=== PATIENT | male | born 1985 | race African-American/Black ===

== ENCOUNTER 2019-04-02 14:05 | Emergency (ER) | payer BC, OTHER ==
[2019-04-02 14:19] VITALS: BP 133/87; PULSE 86; TEMP 98; BMI 29.5
--- NOTE | 2019-04-02 14:19 | PDOC ---
Rapid Medical Evaluation Medical Evaluation: Allergies Allergy/AdvReac Type Severity Reaction Status Date / Time No Known Allergies Allergy Unverified 11/01/13 00:03 I have performed a brief in-person evaluation of this patient. The patient presents with a chief complaint of: No sig pmh, nonsmoker, non drug use, presents with nonradiating substernal CP from 2 days ago; denies sob, abd pain, vomiting; pain is not exertional Pertinent physical exam findings: In NAD, chest nontender I have ordered the following: Labs, ekg, cxr The patient will proceed to the ED for further evaluation. 04/02/19 14:17
--- NOTE | 2019-04-02 16:04 | PDOC ---
History of Present Illness - General Chief Complaint: Chest Pain Stated Complaint: CHEST PAIN Time Seen by Provider: 04/02/19 14:17 - History of Present Illness Initial Comments: 04/02/19 15:57 HPI: 33 y/o M with no pmh presenting with 10 days of chest pain that worsened yesterday. Pain is midsternal without radiation. Was initially intermittent but now its constant. It has no trigger and is nonexertional. Pain is sharp and 9/ 10. He has had no other trauma, recent exercise. He reports trying advil last night with some alleviation of symptoms. He also reports pressure occipital MUJICA and pressure behind his eyes. Also complains of chills, congestion. Denies emesis, SOB, palpitations, fever, syncope, abd pain, dysuria. He also reports odd burning sensation in his right hand palmar surface as well as right foot since chest pain started. It occurs intermittently. He denies any weakness or pain. PMHx: as noted above ROS: as noted SHx: Denies tobacco use; no alcohol use; no rec drugs Allergies: NKDA ROS: GENERAL/CONSTITUTIONAL: +chills, no fever. No weakness. HEAD, EYES, EARS, NOSE AND THROAT: No change in vision. No ear pain or discharge. No sore throat. CARDIOVASCULAR: +chest pain; no shortness of breath RESPIRATORY: No cough, wheezing, or hemoptysis. GASTROINTESTINAL: No vomiting, diarrhea or constipation. GENITOURINARY: No dysuria, frequency, or change in urination. MUSCULOSKELETAL: No joint or muscle swelling or pain. No neck or back pain. SKIN: No rash NEUROLOGIC: +headache; no vertigo, loss of consciousness, or change in strength/ sensation. ENDOCRINE: No increased thirst. No abnormal weight change HEMATOLOGIC/LYMPHATIC: No anemia, easy bleeding, or history of blood clots. ALLERGIC/IMMUNOLOGIC: No hives or skin allergy. PE: GENERAL: Awake, alert, and fully oriented, no acute distress; speech sounds congested HEAD: No signs of trauma, normocephalic, atraumatic; no ttp occipital head EYES: EOMI, sclera anicteric, conjunctiva clear ENT: Auricles normal inspection, hearing grossly normal, nares patent, oropharynx mildly erythematous without exudates. Moist mucosa. no maxiallary or frontal ttp NECK: Normal ROM, no lymphadenopathy LUNGS: No increased work of breathing, symmetrical chest rise, clear to auscultation bilaterally, no wheezes, crackles or rhonchi HEART: Regular rate and rhythm, normal S1 and S2, no murmurs, peripheral pulses 2+ and equal bilaterally. ABDOMEN: Soft, nondistended, nontender, normoactive bowel sounds. No guarding, no rebound. No masses. No CVAT EXTREMITIES: Normal inspection, Normal range of motion, no edema. No clubbing or cyanosis. NEUROLOGICAL: Cranial nerves II through XII grossly intact. Normal speech, normal gait, no focal sensorimotor deficits. Median nerve sensation and motor normal. No pain on passive/active ROM SKIN: Warm, Dry, normal turgor, no rashes or lesions noted Past History - Past Medical History Allergies/Adverse Reactions: Allergies Allergy/AdvReac Type Severity Reaction Status Date / Time No Known Allergies Allergy Unverified 04/02/19 14:19 COPD: No - Psycho Social/Smoking Cessation Hx Smoking History: Never smoked Have you smoked in the past 12 months: No Hx Alcohol Use: No Substance Use Type: None *Physical Exam - Vital Signs Last Vital Signs Temp Pulse Resp BP Pulse Ox 98 F 86 18 133/87 98 04/02/19 14:15 04/02/19 14:15 04/02/19 14:15 04/02/19 14:15 04/02/19 14:15 ED Treatment Course - LABORATORY CBC & Chemistry Diagram: 04/02/19 13:35 04/02/19 13:35 Medical Decision Making - Medical Decision Making 04/02/19 16:16 33 y/o M with no pmh presenting with 10 days of midsternal nonexertional chest pain that worsened yesterday associated with MUJICA and sinus congestion. VSS, AF. PE with mild posterior oropharynx erythema with no exudates. Will ruleout ACS, PNA. Patient without risk factors, likely viral syndrome -cbc, cmp, trop, ekg, cxr -ofirmev 04/02/19 19:28 labs wnl will DC home patient comfortable with plan Discharge - Discharge Information Problems reviewed: Yes Clinical Impression/Diagnosis: Chest pain Qualifiers: Chest pain type: unspecified Qualified Code(s): R07.9 - Chest pain, unspecified Condition: Stable Disposition: HOME - Follow up/Referral Referrals: Ruby Junior MD [Staff Physician] - - Patient Discharge Instructions Patient Printed Discharge Instructions: DI for Atypical Chest Pain Additional Instructions: Return to the ED if you have new or worsening symptoms including severe chest pain, worsening shortness of breath, fainting, persistent vomiting. Please followup with neurologist if symptoms of pain/burning in your hand do not improve - Post Discharge Activity
[2019-04-02 16:05] LABS: BASO % 0.6 % (0-2.0); HEMATOCRIT 45.6 % (35.4-49); HEMOGLOBIN 15.1 GM/dL (11.7-16.9); LYMPH % 44.8 % (8-40); MCHC 33.1 g/dl (32.0-35.9); MEAN CELL VOLUME 87.6 fl (80-96); MEAN PLT VOLUME 8.1 fl (7.5-11.1); NEUT % 45.6 % (42.8-82.8); PLATELET COUNT 302 K/MM3 (134-434); RDW 13.2 % (11.9-15.9)
[2019-04-02] MEDS ORDERED: ACETAMINOPHEN 1000 MG/100 ML VIAL (NON FORMULARY) IVPB ONE (16:10)
[2019-04-02] MEDS ORDERED: ACETAMINOPHEN INJECTION 100 ML IVPB ONE (16:29)
[2019-04-02 16:40] LABS: ALBUMIN 4.4 g/dl (3.4-5.0); ALK PHOS 75 U/L (45-117); ANION GAP 5 MMOL/L (8-16); BILIRUBIN,TOTAL 0.2 mg/dL (0.2-1); BLOOD UREA NITROGEN 22.8 mg/dL (7-18); CALCIUM 9.4 mg/dL (8.5-10.1); CHLORIDE 106 mmol/L (98-107); CO2 27 mmol/L (21-32); GLUCOSE,RANDOM 85 mg/dL (74-106); POTASSIUM 4.1 mmol/L (3.5-5.1); SGOT/AST 23 U/L (15-37); SGPT/ALT 42 U/L (13-61); SODIUM 139 mmol/L (136-145)
--- NOTE | 2019-04-02 16:51 | PDOC ---
Documentation entered by Shen Kim SCRIBE, acting as scribe for Ankit Sandoval MD. Ankit Sandoval MD: This documentation has been prepared by the Judy whitney Xhesika, SCRIBE, under my direction and personally reviewed by me in its entirety. I confirm that the documentation accurately reflects all work, treatment, procedures, and medical decision making performed by me. Attending Attestation - Resident Resident Name: PavanSyed - ED Attending Attestation I have performed the following: I have examined & evaluated the patient, The case was reviewed & discussed with the resident, I agree w/resident's findings & plan, Exceptions are as noted - HPI HPI: 04/02/19 16:04 The patient is a 33 year old male with no PMH of who presents to the ED for 10 days of chest pain. The patient notes initially the chest pain was intermittent , however, since yesterday, the pain has been constant, localized in the midsternal region, sharp, 9/10 in severity, nonradiating. Pt reports a pressure like headache. Pt denies any triggers or trauma. Pt notes he took advil last night with mild relief of symptoms. The patient denies shortness of breath and dizziness. Denies fever, chills, cough, nausea, vomiting, diarrhea and constipation. Allergies:, NKDA Social Hx: Denies current smoking, drinking, or other substance usage. - Physicial Exam PE: 04/02/19 16:04 Vitals: Triage Vital signs reviewed General Appearance: no acute distress, well nourished well developed, Neck: Supple;No Nuchal rigidity Chest Wall: Nontender Cardiac: Regular rate and rhythm, no murmurs, no rubs, no gallops, Lungs: Clear to auscultation bilateral, good air movement bilaterally, Abdomen: Soft, nondistended, normal bowel sounds, nontender to palpation Extremities: Full range of motion to all extremities, no cyanosis, clubbing, or edema Skin: Warm and dry, no rashes or lesions, no petechiae Neuro: AOX3; Cranial Nerves 2-12 grossly c intact, Strength intact to all extremities, Sensation intact to all extremities, gait normal Psych: normal mood, normal affect - Medical Decision Making 04/02/19 16:51 Well-appearing no apparent distress with atypical chest discomfort persistent constant for the last several weeks. Also with a burning sensation to his hand normal neurologic examination history examination most consistent with radiculopathy. Heart score 1 EKG nonischemic we will check troponin have patient follow-up with neurology as an outpatient Findings, the need for follow-up and strict return instructions discussed with patient.
--- NOTE | 2019-04-03 17:58 | EKG ---
Test Reason : Blood Pressure : / mmHG Vent. Rate : 080 BPM Atrial Rate : 080 BPM P-R Int : 156 ms QRS Dur : 074 ms QT Int : 338 ms P-R-T Axes : 068 068 056 degrees QTc Int : 389 ms POOR DATA QUALITY, INTERPRETATION MAY BE ADVERSELY AFFECTED NORMAL SINUS RHYTHM NORMAL ECG NO PREVIOUS ECGS AVAILABLE Confirmed by MD Cleve, Alek ([id number]) on 04/03/2019 5:57:46 PM Referred By: Confirmed By:Alek Poon MD
== END 2019-04-02 19:46 | disposition home or self-care (01) ==
LOC: JER 14:05
PROC: 3E033NZ Introduction of Analgesics, Hypnotics, Sedatives into Peripheral Vein, Percutaneous Approach (ICD-10-PCS; principal; 2019-04-02)
DX: R07.9 Chest pain, unspecified (principal)
CPT/HCPCS: 36415; 71046-TC-FY; 80053; 84484; 85025; 93005; 93010; 99283-25; J0131

== ENCOUNTER 2019-04-15 09:06 | Emergency (ER) | payer BC, OTHER ==
[2019-04-15 09:17] VITALS: BP 127/89; PULSE 83; TEMP 98.4; BMI 30.2
[2019-04-15] MEDS ORDERED: KETOROLAC TROMETHAMINE 60 MG/2 ML VIAL IM ONE (09:47)
[2019-04-15] MEDS ORDERED: METHOCARBAMOL 500 MG TABLET PO ONE (09:47)
[2019-04-15 09:55] LABS: PH,URINE 5.5 (5.0-8.0); URINE APPEARANCE CLEAR; URINE BILIRUBIN NEGATIVE (NEGATIVE); URINE COLOR YELLOW; URINE GLUCOSE (UA) NEGATIVE (NEGATIVE); URINE KETONE TRACE (NEGATIVE); URINE LEUK ESTERASE NEGATIVE (NEGATIVE); URINE NITRITE NEGATIVE (NEGATIVE); URINE PROTEIN TRACE (NEGATIVE); URINE UROBILINOGEN 0.2 mg/dL (0.2-1.0)
[2019-04-15] MEDS ORDERED: METHOCARBAMOL 500 MG TABLET ONE (10:02)
[2019-04-15] MEDS ORDERED: KETOROLAC TROMETHAMINE 60 MG/2 ML VIAL ONE (10:02)
[2019-04-15 10:14] LABS: BASO % 0.4 % (0-2.0); HEMATOCRIT 44.3 % (35.4-49); HEMOGLOBIN 14.8 GM/dL (11.7-16.9); MCH 29.2 pg (25.7-33.7); MCHC 33.5 g/dl (32.0-35.9); MEAN CELL VOLUME 87.1 fl (80-96); MEAN PLT VOLUME 7.7 fl (7.5-11.1); MONO % 7.3 % (3.8-10.2); NEUT % 49.3 % (42.8-82.8); PLATELET COUNT 283 K/MM3 (134-434); RBC 5.09 M/mm3 (4.00-5.60); RDW 13.3 % (11.9-15.9); WHITE BLOOD COUNT 6.2 K/mm3 (4.0-10.0)
--- NOTE | 2019-04-15 10:16 | PDOC ---
History of Present Illness - General Chief Complaint: Pain Stated Complaint: KIDNEY PAIN Time Seen by Provider: 04/15/19 09:30 History Source: Patient Exam Limitations: Clinical Condition - History of Present Illness Initial Comments: 04/15/19 10:11 Patient with no significant past medical history presented with complaint of sudden onset of sharp bilateral flank pain since yesterday putting him on floor due to severe pain yesterday. Patient report taking Motrin for pain yesterday which is improved minimally today but still have some mild pain to bilateral flank area. Denies nausea, vomiting, urinary frequency, hematuria, burning with urination. Patient reported family history of polycystic kidney disease and wants to make sure he does not have the polycystic kidney disease. Denies fever, chills. Denies any other symptoms. Patient did not take anything today for pain Is this a multiple visit Asthma Patient?: No Timing/Duration: 24 hours Past History - Past Medical History Allergies/Adverse Reactions: Allergies Allergy/AdvReac Type Severity Reaction Status Date / Time No Known Allergies Allergy Verified 04/15/19 09:12 Home Medications: Ambulatory Orders Methocarbamol [Robaxin -] 500 mg PO BID PRN #14 tablet 04/15/19 Methylprednisolone [Medrol Dose Vignesh] 4 mg PO ASDIR #21 tablet 04/15/19 Anemia: No Asthma: No Cancer: No Cardiac Disorders: No CVA: No COPD: No CHF: No DVT: No Dementia: No Diabetes: No Dialysis: No GI Disorders: No Disorders: No HTN: No Hypercholesterolemia: No Kidney Stones: No Liver Disease: No Psychiatric Problems: No Seizures: No Thyroid Disease: No Lung CA: No - Immunization History Immunization Up to Date: Yes - Psycho Social/Smoking Cessation Hx Smoking History: Never smoked Have you smoked in the past 12 months: No Hx Alcohol Use: No Drug/Substance Use Hx: No Substance Use Type: None Review of Systems - Review of Systems Able to Perform ROS?: Yes Is the patient limited Mongolian proficient: No Constitutional: No: Chills, Fever, Malaise HEENTM: No: Symptoms Reported, See HPI, Eye Pain, Blurred Vision, Tearing, Recent change in vision, Double Vision, Cataracts, Ear Pain, Ocular Prothesis, Ear Discharge, Nose Pain, Nose Congestion, Tinnitus, Nose Bleeding, Hearing Loss , Throat Pain, Throat Swelling, Mouth Pain, Dental Problems, Difficulty Swallowing, Mouth Swelling, Other Respiratory: No: Symptoms reported, See HPI, Cough, Orthopnea, Shortness of Breath, SOB with Exertion, SOB at Rest, Stridor, Wheezing, Productive cough, Hemoptysis, Other Cardiac (ROS): No: Symptoms Reported, See HPI, Chest Pain, Edema, Irregular Heart Rate, Lightheadedness, Palpitations, Syncope, Chest Tightness, Other ABD/GI: No: Symptoms Reported, See HPI, Abdominal Distended, Constipated, Diarrhea, Difficulty Swallowing, Nausea, Poor Appetite, Rectal Bleeding, Vomiting, Indigestion, Abdominal cramping, Tarry Stools : Yes: Flank Pain (b/l lower flank pain). No: Symptoms Reported, See HPI, Burning, Dysuria, Discharge, Frequency, Incontinence, Urgency, Testicular Mass, Testicular Swelling, Testicular Pain Musculoskeletal: Yes: Symptoms Reported, See HPI, Back Pain Integumentary: No: Symptoms Reported Neurological: No: Symptoms reported, Numbness, Paresthesia, Tingling All Other Systems: Reviewed and Negative *Physical Exam - Vital Signs Last Vital Signs Temp Pulse Resp BP Pulse Ox 98.4 F 83 18 127/89 98 04/15/19 09:13 04/15/19 09:13 04/15/19 09:13 04/15/19 09:13 04/15/19 09:13 - Physical Exam General Appearance: Yes: Nourished, Appropriately Dressed, Apparent Distress, Mild Distress HEENT: positive: Normal ENT Inspection Neck: positive: Supple Respiratory/Chest: positive: Lungs Clear, Normal Breath Sounds. negative: Respiratory Distress, Accessory Muscle Use Cardiovascular: positive: Regular Rhythm, Regular Rate Gastrointestinal/Abdominal: positive: Normal Bowel Sounds, Flat, Soft. negative : Tender, Organomegaly, Increased Bowel Sounds, Guarding, Rebound, Tenderness Musculoskeletal: positive: Normal Inspection, Other (mild tenderness to b/l flank and lower back area). negative: CVA Tenderness Extremity: positive: Normal Inspection, Normal Range of Motion Integumentary: positive: Normal Color Neurologic: positive: Fully Oriented, Alert, Normal Mood/Affect, Normal Response ED Treatment Course - LABORATORY CBC & Chemistry Diagram: 04/15/19 09:55 04/15/19 09:55 - ADDITIONAL ORDERS Additional order review: Laboratory Results 04/15/19 09:34 Urine Color Yellow Urine Appearance Clear Urine pH 5.5 Ur Specific Ray 1.026 Urine Protein Trace Urine Glucose (UA) Negative Urine Ketones Trace H Urine Blood Negative Urine Nitrite Negative Urine Bilirubin Negative Urine Urobilinogen 0.2 Ur Leukocyte Esterase Negative - RADIOLOGY Radiology Studies Ordered: Category Date Time Status SPIRAL- RENAL-STONE CT [CT] Stat CT Scan 04/15/19 09:47 Ordered - Medications Given in the ED: ED Medications Discontinued Medications Generic Name Dose Route Start Last Admin Trade Name Rajesh PRN Reason Stop Dose Admin Ketorolac Tromethamine 60 mg 04/15/19 09:47 04/15/19 10:08 Toradol Injection - IM 04/15/19 09:48 60 mg ONCE ONE Administration Methocarbamol 500 mg 04/15/19 09:47 04/15/19 10:08 Robaxin - PO 04/15/19 09:48 500 mg ONCE ONE Administration Medical Decision Making - Medical Decision Making 04/15/19 10:12 Patient with no significant past medical history presented with complaint of sudden onset of sharp bilateral flank pain since yesterday putting him on floor due to severe pain yesterday. Patient report taking Motrin for pain yesterday which is improved minimally today but still have some mild pain to bilateral flank area. Denies nausea, vomiting, urinary frequency, hematuria, burning with urination. Patient reported family history of polycystic kidney disease and wants to make sure he does not have the polycystic kidney disease. Denies fever, chills. Denies any other symptoms. Patient did not take anything today for pain Exam significant for mild bilateral flank pain. No CVA tenderness. No abdominal tenderness. Symptoms likely back strain versus kidney stones. CBC, CMP, UA and urine culture lab ordered. Urine GC and chlamydia and lab ordered. Spiral CT ordered to rule out kidney stone. Toradol 60 mg IM and Robaxin 500 mg p.o. ordered for pain and possible spasm. Treat based on lab and imaging results 04/15/19 11:48 CBC, CMP and urine labs negative. Spiral CT shows no acute pathology of renal stones. Patient symptoms likely muscle spasm and stable for discharge on Medrol Vignesh for anti-inflammatory effect and Robaxin for spasm with PCP follow-up Discharge - Discharge Information Problems reviewed: Yes Clinical Impression/Diagnosis: Back muscle spasm Back strain Qualifiers: Encounter type: initial encounter Qualified Code(s): S39.012A - Strain of muscle, fascia and tendon of lower back, initial encounter Condition: Stable Disposition: HOME - Admission No - Additional Discharge Information Prescriptions: Methocarbamol [Robaxin -] 500 mg PO BID PRN #14 tablet PRN Reason: back spasm Methylprednisolone [Medrol Dose Vignesh] 4 mg PO ASDIR #21 tablet - Follow up/Referral - Patient Discharge Instructions Patient Printed Discharge Instructions: DI for Back Spasm Additional Instructions: Your lab work was normal and your urine test is normal as well. CAT scan done of the abdomen and back shows no acute pathology of the kidneys or renal stones. Your symptoms likely caused by muscle spasm. Take prescribed medication as prescribed for pain and spasm. Apply hot compress to low back 2- 3 times a day as needed for pain. Follow-up with your primary care - Post Discharge Activity
[2019-04-15 10:35] LABS: ALBUMIN 4.3 g/dl (3.4-5.0); BILIRUBIN,TOTAL 0.6 mg/dL (0.2-1); BLOOD UREA NITROGEN 18.8 mg/dL (7-18); CALCIUM 9.4 mg/dL (8.5-10.1); POTASSIUM 4.1 mmol/L (3.5-5.1)
== END 2019-04-15 12:13 | disposition home or self-care (01) ==
LOC: JER 09:06
PROC: 3E0233Z Introduction of Anti-inflammatory into Muscle, Percutaneous Approach (ICD-10-PCS; principal; 2019-04-15)
DX: S39.012A Strain of muscle, fascia and tendon of lower back, initial encounter (principal); X58.XXXA Exposure to other specified factors, initial encounter; Y93.89 Activity, other specified; Y92.89 Other specified places as the place of occurrence of the external cause; M62.830 Muscle spasm of back
CPT/HCPCS: 36415; 74176-TC; 80053; 81003; 85025; 87086; 87491; 87591; 99282-25